=== PATIENT | male | born 2000 | race Caucasian/White ===

== ENCOUNTER 2022-08-18 20:33 | Emergency (ER) | payer BC ==
[2022-08-18] MEDS: Acetaminophen/HYDROcodone 325-5 MG Tab PO ONE (21:58)
== END 2022-08-18 22:03 | disposition home or self-care (01) ==
LOC: JP.ED 20:33
DX: K03.81 Cracked tooth (principal)
CPT/HCPCS: 99282; 99283; A9270-GY

== ENCOUNTER 2022-08-24 19:12 | Emergency (ER) | payer BC ==
[2022-08-24] MEDS ORDERED: cefTRIAXone 2 GM in Sodium Chloride 0.9% 50 ML IV ONE (20:09)
[2022-08-24] MEDS ORDERED: cefTRIAXone 2 GM AdvVial IV ONE (20:14)
[2022-08-24] MEDS ORDERED: Sodium Chloride 0.9% 50 ML ONE (20:15)
== END 2022-08-24 20:55 | disposition home or self-care (01) ==
LOC: JP.ED 19:12
DX: K04.7 Periapical abscess without sinus (principal); S02.5XXG Fracture of tooth (traumatic), subsequent encounter for fracture with delayed healing
CPT/HCPCS: 36415; 85025; 96365; 99283; J0696